=== PATIENT | male | born 1940 | race Hispanic/Latino ===

== ENCOUNTER → 2023-02-24 | Emergency (ER) | payer OTHER | LOC: EDH 19:43 | DX: Z53.21 Procedure and treatment not carried out due to patient leaving prior to being seen by health care provider (principal) ==

== ENCOUNTER → 2023-02-24 | Outpatient (CLI) | payer OTHER ==
[2023-02-24 22:41] VITALS: PULSE 62; RESP 16
[2023-02-24 23:00] VITALS: PULSE 70; RESP 14
[2023-02-24 23:30] VITALS: PULSE 72; RESP 12
[2023-02-25] VITALS (11 sets, daily range): PULSE 54–82; RESP 6–16
== END | disposition home or self-care (01) ==
LOC: SLP 19:51
PROVIDERS: ATTEND Family Medicine
DX: G47.33 Obstructive sleep apnea (adult) (pediatric) (principal)
CPT/HCPCS: 95810

== ENCOUNTER → 2023-03-14 | Outpatient (CLI) | payer OTHER ==
[2023-03-14] VITALS (9 sets, daily range): PULSE 57–70; RESP 7–20
[2023-03-15] VITALS (15 sets, daily range): PULSE 32–64; RESP 13–25
== END | disposition home or self-care (01) ==
LOC: SLP 18:54
PROVIDERS: ATTEND Family Medicine
DX: G47.33 Obstructive sleep apnea (adult) (pediatric) (principal)
CPT/HCPCS: 95811